=== PATIENT | female | born 1975 | race American Indian/Alaskan Native ===

== ENCOUNTER 2018-06-17 13:22 | Inpatient (IN) | payer BC, MEDICAID ==
[2018-06-17] MEDS ORDERED: Sodium Chloride 0.9% 1,000 ML IV ONE ×2 (14:19→16:39)
[2018-06-17] MEDS ORDERED: Sodium Chloride 0.9% 2,000 ML ONE (14:26)
[2018-06-17 14:34] LABS: SQUAMOUS EPITHIAL 8 /hpf (0-5); URINE BILIRUBIN NEGATIVE (NEGATIVE); URINE BLOOD NEGATIVE (NEGATIVE); URINE CLARITY Hazy (Clear); URINE COLOR Yellow (YELLOW); URINE GLUCOSE (UA) NORMAL (Normal); URINE LEUKOCYTE ESTERASE NEG Leu/uL (Negative); URINE PROTEIN NEGATIVE (NEGATIVE); URINE UROBILINOGEN NORMAL mg/dL (0.2-1.0)
[2018-06-17 14:44] LABS: BASO # 0.1 K/uL (0.0-0.2); BASO % 0.6 % (0.0-2.0); EOS # 0.1 K/uL (0.0-0.7); EOS % 0.5 % (0.0-4.0); HEMOGLOBIN 11.1 g/dL (11.0-16.0); LYMPH # 0.6 K/uL (1.0-4.3); LYMPH % 5.4 % (20.0-40.0); MEAN CORPUSCULAR HGB CONC 34.4 g/dL (33.0-37.0); MEAN PLATELET VOLUME 8.6 fL (7.2-11.7); MONO # 1.1 K/uL (0.0-0.8); MONO % 10.5 % (0.0-10.0); NRBC % 0.1 % (0.0-2.0); PLATELET COUNT 233 K/uL (130-400); RBC 3.69 Mil/uL (3.80-5.20); WHITE BLOOD COUNT 10.8 K/uL (4.8-10.8)
[2018-06-17 14:47] LABS: ALB/GLOB RATIO 1.3 (1.0-2.1); ALBUMIN 3.8 g/dL (3.5-5.0); ALT/SGPT 34 U/L (9-52); AST/SGOT 40 U/L (14-36); BLOOD UREA NITROGEN 4 mg/dL (7-17); GFR NON-AFRICAN AMERICAN > 60
[2018-06-17 15:02] LABS: BANDS 2 % (0-2); LYMPHOCYTE 4 % (20-40); METAMYELOCYTE 1 % (0-0); MONOCYTE 10 % (0-10); NEUTROPHIL 83 % (50-75); TOTAL CELLS COUNTED 100
[2018-06-17 15:03] LABS: ANISOCYTOSIS SLIGHT; HYPOCHROMIC SLIGHT; PLATELET ESTIMATE NORMAL (NORMAL); POLYCHROMIC SLIGHT; TARGET CELLS SLIGHT
--- NOTE | 2018-06-17 15:30 | C.PDOC ---
History Of Present Illness 42 y/o female, currently 25 weeks , comes in complaining of 2 day history of cough, congestion, body aches, and fever but no nausea, vomiting, or diarrhea. Patient denies any vaginal bleeding or discharge, abdominal pain, or other symptoms. Time Seen by Provider: 06/17/18 14:03 Chief Complaint (Nursing): Cough, Cold, Congestion History Per: Patient History/Exam Limitations: no limitations Onset/Duration Of Symptoms: Days Current Symptoms Are (Timing): Still Present Past Medical History Reviewed: Historical Data, Nursing Documentation, Vital Signs Vital Signs: Last Vital Signs Temp 100.9 F H 06/17/18 14:30 Pulse 134 H 06/17/18 14:18 Resp 16 06/17/18 14:18 BP 116/67 06/17/18 14:18 Pulse Ox 100 06/17/18 14:18 Family History: States: No Known Family Hx - Social History Hx Alcohol Use: No Hx Substance Use: No Review Of Systems Except As Marked, All Systems Reviewed And Found Negative. Constitutional: Positive for: Fever, Other (Body aches) ENT: Positive for: Nose Congestion Respiratory: Positive for: Cough Neurological: Positive for: Headache Physical Exam - Physical Exam Appears: Non-toxic, No Acute Distress Skin: Normal Color, Warm, Dry Head: Atraumatic, Normacephalic Eye(s): bilateral: Normal Inspection, PERRL Ear(s): Bilateral: Normal Oral Mucosa: Moist Throat: Normal, No Erythema, No Exudate Cardiovascular: Rhythm Regular, No Murmur Respiratory: Normal Breath Sounds, No Rales, No Rhonchi, No Wheezing Gastrointestinal/Abdominal: Soft, No Tenderness Pelvic: Other (Gravid uterus) Extremity: Bilateral: Atraumatic, Normal Color And Temperature, Normal ROM Neurological/Psych: Oriented x3, Normal Speech ED Course And Treatment - Laboratory Results Result Diagrams: 06/17/18 14:31 06/17/18 14:31 Lab Results: Total Bilirubin 0.6 mg/dL (0.2-1.3) 06/17/18 14:31 AST 40 U/L (14-36) H 06/17/18 14:31 ALT 34 U/L (9-52) 06/17/18 14:31 Alkaline Phosphatase 86 U/L (38-126) 06/17/18 14:31 Total Protein 6.8 g/dL (6.3-8.3) 06/17/18 14:31 Albumin 3.8 g/dL (3.5-5.0) 06/17/18 14:31 Globulin 3.0 gm/dL (2.2-3.9) 06/17/18 14:31 Albumin/Globulin Ratio 1.3 (1.0-2.1) 06/17/18 14:31 Urine Color Yellow (YELLOW) 06/17/18 14:24 Urine Clarity Hazy (Clear) 06/17/18 14:24 Urine pH 6.0 (5.0-8.0) 06/17/18 14:24 Ur Specific [place] 1.016 (1.003-1.030) 06/17/18 14:24 Urine Protein Negative mg/dL (NEGATIVE) 06/17/18 14:24 Urine Glucose (UA) Normal mg/dL (Normal) 06/17/18 14:24 Urine Ketones Trace mg/dL (NEGATIVE) 06/17/18 14:24 Urine Blood Negative (NEGATIVE) 06/17/18 14:24 Urine Nitrate Negative (NEGATIVE) 06/17/18 14:24 Urine Bilirubin Negative (NEGATIVE) 06/17/18 14:24 Urine Urobilinogen Normal mg/dL (0.2-1.0) 06/17/18 14:24 Ur Leukocyte Esterase Neg Antonio/uL (Negative) 06/17/18 14:24 Urine WBC (Auto) 2 /hpf (0-5) 06/17/18 14:24 Urine RBC (Auto) 2 /hpf (0-3) 06/17/18 14:24 Ur Squamous Epith Cells 8 /hpf (0-5) H 06/17/18 14:24 ECG: Interpreted By Me, Viewed By Me ECG Rhythm: Sinus Tachycardia Interpretation Of ECG: Normal intervals. Normal axis. No ST/T wave abnormalities. Rate From EC O2 Sat by Pulse Oximetry: 100 (RA) Pulse Ox Interpretation: Normal Medical Decision Making Medical Decision Making: Impression: Influenza Plan: --Labs --Flu swab --UA --IV fluids 1L --Tamiflu PO --Tylenol PO 1630 Notified L&D, secondary to patient, states that she has abdominal cramping and pressure now, but no bleeding. patient remained tachycardic. Will admit to hospital. Disposition Discussed With : Vicente Gill Doctor Will See Patient In The: Hospital Counseled Patient/Family Regarding: Studies Performed, Diagnosis - Disposition Disposition: HOSPITALIZED Disposition Time: 18:07 Condition: FAIR - Clinical Impression Clinical Impression: Influenza-like illness, Tachycardia, - Scribe Statement The provider has reviewed the documentation as recorded by the Adrianne Varela Provider Attestation: All medical record entries made by the Greeribdao were at my direction and p ersonally dictated by me. I have reviewed the chart and agree that the record accurately reflects my personal performance of the history, physical exam, medical decision making, and the department course for this patient. I have also personally directed, reviewed, and agree with the discharge instructions and disposition.
--- NOTE | 2018-06-17 18:18 | CP.PCM.CON ---
History of Present Illness - History of Present Illness History of Present Illness: 42yo at 25.3wks SHANTELLE: 09/27/18 by LMP: 12/21/17 presents with cough, fever, fatigue x 2 days. Pt states child at home tested positive for flu. The patient tested postive for Influenza A on examination today. She denies contractiosn, leakage of fluid and vaginal bleeding. Reports movements. Review of Systems - Review of Systems Systems not reviewed;Unavailable: Unstable Vital Signs - Constitutional Constitutional: As Per HPI - Cardiovascular Cardiovascular: As Per HPI - Respiratory Respiratory: As Per HPI - Reproductive: Female Additional comments: deferred Past Patient History - Past Medical History & Family History Past Medical History?: No - Past Social History Smoking Status: Never Smoked Chewing Tobacco Use: No Cigar Use: No Alcohol: None Drugs: Denies Home Situation {Lives}: With Family - HEMATOLOGICAL/ONCOLOGICAL Hx Anemia: Yes - PSYCHIATRIC Hx Substance Use: No Meds Allergies/Adverse Reactions: Allergies Allergy/AdvReac Type Severity Reaction Status Date / Time almond Allergy Verified 06/17/18 13:36 Physical Exam - GI/Abdominal Exam Additional comments: soft, non-tender nondistended (+) gravid uterus Results - Vital Signs Recent Vital Signs: Last Vital Signs Temp 98.2 F 06/17/18 17:00 Pulse 126 H 06/17/18 17:00 Resp 19 06/17/18 17:00 BP 108/63 06/17/18 17:00 Pulse Ox 100 06/17/18 17:00 - Labs Result Diagrams: 06/17/18 14:31 06/17/18 14:31 Labs: Laboratory Results - last 24 hr 06/17/18 06/17/18 06/17/18 14:24 14:31 14:31 WBC 10.8 RBC 3.69 L Hgb 11.1 Hct 32.1 L MCV 87.0 MCH 30.0 MCHC 34.4 RDW 14.0 Plt Count 233 MPV 8.6 Neut % (Auto) 83.0 H Lymph % (Auto) 5.4 L Kane % (Auto) 10.5 H Eos % (Auto) 0.5 Baso % (Auto) 0.6 Neut # (Auto) 9.0 H Lymph # (Auto) 0.6 L Kane # (Auto) 1.1 H Eos # (Auto) 0.1 Baso # (Auto) 0.1 Neutrophils % (Manual) 83 H Band Neutrophils % 2 Lymphocytes % (Manual) 4 L Monocytes % (Manual) 10 Metamyelocytes % 1 H Platelet Estimate Normal Polychromasia Slight Hypochromasia (manual) Slight Anisocytosis (manual) Slight Target Cells Slight Sodium 133 Potassium 3.8 Chloride 102 Carbon Dioxide 23 Anion Gap 12 BUN 4 L Creatinine 0.5 L Est GFR ( Amer) > 60 Est GFR (Non-Af Amer) > 60 Random Glucose 78 Calcium 9.0 Total Bilirubin 0.6 AST 40 H ALT 34 Alkaline Phosphatase 86 Total Protein 6.8 Albumin 3.8 Globulin 3.0 Albumin/Globulin Ratio 1.3 Urine Color Yellow Urine Clarity Hazy Urine pH 6.0 Ur Specific [place] 1.016 Urine Protein Negative Urine Glucose (UA) Normal Urine Ketones Trace Urine Blood Negative Urine Nitrate Negative Urine Bilirubin Negative Urine Urobilinogen Normal Ur Leukocyte Esterase Neg Urine WBC (Auto) 2 Urine RBC (Auto) 2 Ur Squamous Epith Cells 8 H Influenza Typ A,B (EIA) 06/17/18 14:31 WBC RBC Hgb Hct MCV MCH MCHC RDW Plt Count MPV Neut % (Auto) Lymph % (Auto) Kane % (Auto) Eos % (Auto) Baso % (Auto) Neut # (Auto) Lymph # (Auto) Kane # (Auto) Eos # (Auto) Baso # (Auto) Neutrophils % (Manual) Band Neutrophils % Lymphocytes % (Manual) Monocytes % (Manual) Metamyelocytes % Platelet Estimate Polychromasia Hypochromasia (manual) Anisocytosis (manual) Target Cells Sodium Potassium Chloride Carbon Dioxide Anion Gap BUN Creatinine Est GFR ( Amer) Est GFR (Non-Af Amer) Random Glucose Calcium Total Bilirubin AST ALT Alkaline Phosphatase Total Protein Albumin Globulin Albumin/Globulin Ratio Urine Color Urine Clarity Urine pH Ur Specific [place] Urine Protein Urine Glucose (UA) Urine Ketones Urine Blood Urine Nitrate Urine Bilirubin Urine Urobilinogen Ur Leukocyte Esterase Urine WBC (Auto) Urine RBC (Auto) Ur Squamous Epith Cells Influenza Typ A,B (EIA) Pos for influenza a H Assessment & Plan - Assessment and Plan (Free Text) Assessment: 42yo [id number] at 25.3wks- Influenza VS-(+) tachycardia (+) temp 100.9 EKG NSR in ER Continue IVF Influenza A positive- Tamiflu safe in no obstetrical complaints at this time NST at bedside performed- no CTX noted, unable to get continuous NST- Bedside US performed (+) FHR 150s, (+) movements visualized - Official US ordered- will follow Thank you for your consultation, will continue to follow patient if admitted. Tessa eJwell D.O (DEGREE CLERK marine engineering consultant)
[2018-06-18] MEDS: Sodium Chloride 0.9% 1,000 ML IV SCH ×3 (01:36→18:53)
[2018-06-18 01:51] VITALS: RESP 20
[2018-06-18] MEDS ORDERED: Benzocaine/Menthol (Cepacol) Lozenge MT ONE (05:48)
[2018-06-18 09:41] LABS: HEMOGLOBIN 9.5 g/dL (11.0-16.0); MEAN CELL VOLUME 87.2 fL (81.0-99.0); MEAN CORPUSCULAR HEMOGLOBIN 29.3 pg (27.0-31.0); MEAN CORPUSCULAR HGB CONC 33.6 g/dL (33.0-37.0); MEAN PLATELET VOLUME 8.6 fL (7.2-11.7); RBC 3.25 Mil/uL (3.80-5.20); RED CELL DISTRIBUTION WIDTH 13.9 % (11.5-14.5); WHITE BLOOD COUNT 7.6 K/uL (4.8-10.8)
[2018-06-18 09:58] LABS: BLOOD UREA NITROGEN 3 mg/dL (7-17); CALCIUM 8.5 mg/dl (8.6-10.4); GFR NON-AFRICAN AMERICAN > 60
[2018-06-18] MEDS: Potassium Chloride 20 mEq/15 ml LIQ UD PO SCH ×2 (12:48→16:48)
--- NOTE | 2018-06-18 13:14 | US ---
Limited obstetrical ultrasound HISTORY: Twenty-six weeks . Flu positive. COMPARISON: None available. Technique: Real-time sonography was performed through the pelvis. Findings: Please note this was a study dedicated for viability purposes only. This was not a dedicated anatomic survey. Dedicated anatomic survey to assess for anomaly is recommended as follow-up to this examination. Cervix measures 4.2 centimeters. Anterior placental position. Placenta is clear from the cervical. Breech presentation. heart rate and motion noted. heart rate of 137 beats per minute. Mean ultrasound age of approximately 26 weeks and 0 days. Biparietal diameter of 6.6 centimeters, head circumference of 24 centimeters, abdominal circumference of 20.98 centimeters, and femur length of 4.6 centimeters. Impression: Limited study for viability purposes only. Dedicated anatomic survey is recommended at an interval date to assess for possible anomaly. Mean ultrasound age of approximately 26 weeks and 0 days with heart rate of 137 beats per minute. Breech presentation.
--- NOTE | 2018-06-18 21:01 | CP.PCM.HP ---
Present on Admission - Present on Admission Any Indicators Present on Admission: No Past Patient History - Past Medical History & Family History Past Medical History?: No - Past Social History Smoking Status: Never Smoked - CARDIAC Hx Cardiac Disorders: No - PULMONARY Hx Respiratory Disorders: No - NEUROLOGICAL Hx Neurological Disorder: No - HEENT Hx HEENT Problems: No - RENAL Hx Chronic Kidney Disease: No - ENDOCRINE/METABOLIC Hx Endocrine Disorders: No - HEMATOLOGICAL/ONCOLOGICAL Hx Blood Disorders: Yes Hx Anemia: Yes - INTEGUMENTARY Hx Dermatological Problems: No - MUSCULOSKELETAL/RHEUMATOLOGICAL Hx Musculoskeletal Disorders: No Hx Falls: No - GASTROINTESTINAL Hx Gastrointestinal Disorders: No - GENITOURINARY/GYNECOLOGICAL Hx Genitourinary Disorders: No - PSYCHIATRIC Hx Psychophysiologic Disorder: No Hx Substance Use: No - SURGICAL HISTORY Hx Surgeries: No - ANESTHESIA Hx Anesthesia: No Meds Allergies/Adverse Reactions: Allergies Allergy/AdvReac Type Severity Reaction Status Date / Time almond Allergy Verified 06/17/18 13:36 Results - Vital Signs Recent Vital Signs: Last Vital Signs Temp 99 F 06/18/18 15:16 Pulse 102 H 06/18/18 15:16 Resp 20 06/18/18 15:16 BP 96/54 L 06/18/18 15:16 Pulse Ox 98 06/18/18 15:16 - Labs Result Diagrams: 06/18/18 09:33 06/18/18 09:33 Labs: Laboratory Results - last 24 hr 06/18/18 06/18/18 09:33 09:33 WBC 7.6 RBC 3.25 L Hgb 9.5 L Hct 28.3 L MCV 87.2 MCH 29.3 MCHC 33.6 RDW 13.9 Plt Count 214 MPV 8.6 Sodium 134 Potassium 3.1 L Chloride 107 Carbon Dioxide 21 L Anion Gap 8 L BUN 3 L Creatinine 0.4 L Est GFR ( Amer) > 60 Est GFR (Non-Af Amer) > 60 Random Glucose 141 H D Calcium 8.5 L
--- NOTE | 2018-06-19 05:33 | HP ---
CHIEF COMPLAINT: Fever, cough for two days. HISTORY OF PRESENT ILLNESS: This is a 42-year-old female who is 25 weeks who came in because two days onset of cough, congestion, body aches, fever, chills, rigors, nausea. No vomiting. She has chills. She has malaise. She has anorexia. She feels palpitations, weakness, and dizziness. She denies any abdominal pain, nausea, vomiting, diarrhea. She denies any polyuria, polydipsia, polyphagia. She denies any sneezing, itchy eyes, itchy nose. There is no history of trauma or fall. There is no history of hematemesis, melena, hematochezia. She had no history of hemoptysis. She has fever and chills. She denied any prior episode like this. She denies any joint pain. She has body aches and muscle aches. SOCIAL HISTORY: She is non-smoker, non-ETOH user. CURRENT MEDICATIONS: None. PAST MEDICAL HISTORY: Nothing significant. PHYSICAL EXAMINATION: GENERAL: Middle-aged female in distress with weakness, fever, and malaise. VITAL SIGNS: Blood pressure 130/74, pulse 123, respiratory rate 20, temperature 99.8. SKIN: No rashes. No bruises. No purpura. HEENT: Atraumatic, normocephalic. Negative pallor. Negative jaundice. Extraocular movements are intact. NECK: Supple. No JVD. No lymph node. No thyromegaly. No carotid bruits. CHEST WALL: Bilaterally symmetrical expansion. LUNGS: Clear. CARDIOVASCULAR SYSTEM: S1 and S2 regular. Tachycardiac. ABDOMEN: Soft. Nontender. Bowel sounds are positive. PELVIC: Deferred. EXTREMITIES: No clubbing, cyanosis or edema. CENTRAL NERVOUS SYSTEM: Normal. ASSESSMENT: 1. Flu. 2. Dehydration. PLAN: Admit. Detailed orders are written. Seen and examined. Vicente Gill MD
[2018-06-19 07:44] VITALS: BP 99/63; TEMP 97.8; O2SAT 97
[2018-06-19 08:31] VITALS: PULSE 86
[2018-06-19] MEDS ORDERED: Potassium Chloride 20 mEq ER Tab PO ONE (10:00)
--- NOTE | 2018-06-19 12:25 | CP.PCM.PN ---
Subjective - Date & Time of Evaluation Date of Evaluation: 06/19/18 Time of Evaluation: 12:25 - Subjective Subjective: PATIENT SEEN AND EXAMINED AT THE BEDSIDE Objective - Vital Signs/Intake and Output Vital Signs (last 24 hours): Temp Pulse Resp BP Pulse Ox 97.8 F 86 20 99/63 L 97 06/19/18 07:05 06/19/18 07:45 06/19/18 07:05 06/19/18 07:05 06/19/18 07:05 - Medications Medications: Current Medications Acetaminophen (Tylenol 325mg Tab) 650 mg PO Q6 PRN PRN Reason: Fever >100.4 F Last Admin: 06/18/18 19:42 Dose: 650 mg Sodium Chloride (Sodium Chloride 0.9%) 1,000 mls @ 100 mls/hr IV .Q10H MAXIMINO Last Admin: 06/18/18 18:53 Dose: Not Given Influenza Virus Vaccine (Flucelvax Quad 4118-7330 Syr) 60 mcg IM .ONCE ONE Stop: 06/20/18 12:01 Oseltamivir Phosphate (Tamiflu Cap) 75 mg PO BID MAXIMINO; Protocol Stop: 06/22/18 21:12 Last Admin: 06/19/18 09:26 Dose: 75 mg - Labs Labs: 06/18/18 09:33 06/18/18 09:33 Assessment and Plan - Assessment and Plan (Free Text) Assessment: FOLLOW UP WITH DR SEXTON IN HIS OFFICE -----CALL FOR APPOINTMENT FOLLOW UP WITH OBGYN -----CALL FOR APPOINTMENT CONTINUE HOME MEDICATION NEW PRESCRIPTION GIVEN TAMIFLU 75 MG PO BID FOR 4 DAYS CEPACOL ONE TAB PO PRN FOR 3 DAYS FOR SORE THROAT GUAIFENISIN 10 ML PO PRN Q4 H FOR COUGH ACTIVITY TOLERATED CALL DR SEXTON OR GO TO THE EMERGENCY ROOM IF SYMPTOM RETURN OR WORSENING
--- NOTE | 2018-06-19 19:46 | CARD ---
APPROVED REPORT Date of service: 06/17/2018 EKG Measurement Heart [id number] <Conclusion> Sinus tachycardia Otherwise normal ECG
--- NOTE | 2018-06-19 20:32 | CP.PCM.DIS ---
Provider - Provider Date of Admission: 06/17/18 18:04 Attending physician: Vicente Gill MD Consults: 06/17/18 17:39 Physician Consult Stat Comment: Consulting Provider: Radha Jewell Consulting Physician: Radha Jewell Reason for Consult: abdominal pressure Time Spent in preparation of Discharge (in minutes): 30 Hospital Course - Lab Results Lab Results: Most Recent Lab Values WBC 7.6 K/uL (4.8-10.8) 06/18/18 09:33 RBC 3.25 Mil/uL (3.80-5.20) L 06/18/18 09:33 Hgb 9.5 g/dL (11.0-16.0) L 06/18/18 09:33 Hct 28.3 % (34.0-47.0) L 06/18/18 09:33 MCV 87.2 fL (81.0-99.0) 06/18/18 09:33 MCH 29.3 pg (27.0-31.0) 06/18/18 09:33 MCHC 33.6 g/dL (33.0-37.0) 06/18/18 09:33 RDW 13.9 % (11.5-14.5) 06/18/18 09:33 Plt Count 214 K/uL (130-400) 06/18/18 09:33 MPV 8.6 fL (7.2-11.7) 06/18/18 09:33 Neut % (Auto) 83.0 % (50.0-75.0) H 06/17/18 14:31 Lymph % (Auto) 5.4 % (20.0-40.0) L 06/17/18 14:31 [place] % (Auto) 10.5 % (0.0-10.0) H 06/17/18 14:31 Eos % (Auto) 0.5 % (0.0-4.0) 06/17/18 14:31 Baso % (Auto) 0.6 % (0.0-2.0) 06/17/18 14:31 Neut # (Auto) 9.0 K/uL (1.8-7.0) H 06/17/18 14:31 Lymph # (Auto) 0.6 K/uL (1.0-4.3) L 06/17/18 14:31 [place] # (Auto) 1.1 K/uL (0.0-0.8) H 06/17/18 14:31 Eos # (Auto) 0.1 K/uL (0.0-0.7) 06/17/18 14:31 Baso # (Auto) 0.1 K/uL (0.0-0.2) 06/17/18 14:31 Neutrophils % (Manual) 83 % (50-75) H 06/17/18 14:31 Band Neutrophils % 2 % (0-2) 06/17/18 14:31 Lymphocytes % (Manual) 4 % (20-40) L 06/17/18 14:31 Monocytes % (Manual) 10 % (0-10) 06/17/18 14:31 Metamyelocytes % 1 % (0-0) H 06/17/18 14:31 Platelet Estimate Normal (NORMAL) 06/17/18 14:31 Polychromasia Slight 06/17/18 14:31 Hypochromasia (manual) Slight 06/17/18 14:31 Anisocytosis (manual) Slight 06/17/18 14:31 Target Cells Slight 06/17/18 14:31 Sodium 134 mmol/L (132-148) 06/18/18 09:33 Potassium 3.1 mmol/L (3.6-5.2) L 06/18/18 09:33 Chloride 107 mmol/L (98-107) 06/18/18 09:33 Carbon Dioxide 21 mmol/L (22-30) L 06/18/18 09:33 Anion Gap 8 (10-20) L 06/18/18 09:33 BUN 3 mg/dL (7-17) L 06/18/18 09:33 Creatinine 0.4 mg/dL (0.7-1.2) L 06/18/18 09:33 Est GFR ( Amer) > 60 06/18/18 09:33 Est GFR (Non-Af Amer) > 60 06/18/18 09:33 Random Glucose 141 mg/dL (65-105) H D 06/18/18 09:33 Calcium 8.5 mg/dl (8.6-10.4) L 06/18/18 09:33 Total Bilirubin 0.6 mg/dL (0.2-1.3) 06/17/18 14:31 AST 40 U/L (14-36) H 06/17/18 14:31 ALT 34 U/L (9-52) 06/17/18 14:31 Alkaline Phosphatase 86 U/L (38-126) 06/17/18 14:31 Total Protein 6.8 g/dL (6.3-8.3) 06/17/18 14:31 Albumin 3.8 g/dL (3.5-5.0) 06/17/18 14:31 Globulin 3.0 gm/dL (2.2-3.9) 06/17/18 14:31 Albumin/Globulin Ratio 1.3 (1.0-2.1) 06/17/18 14:31 Urine Color Yellow (YELLOW) 06/17/18 14:24 Urine Clarity Hazy (Clear) 06/17/18 14:24 Urine pH 6.0 (5.0-8.0) 06/17/18 14:24 Ur Specific [place] 1.016 (1.003-1.030) 06/17/18 14:24 Urine Protein Negative mg/dL (NEGATIVE) 06/17/18 14:24 Urine Glucose (UA) Normal mg/dL (Normal) 06/17/18 14:24 Urine Ketones Trace mg/dL (NEGATIVE) 06/17/18 14:24 Urine Blood Negative (NEGATIVE) 06/17/18 14:24 Urine Nitrate Negative (NEGATIVE) 06/17/18 14:24 Urine Bilirubin Negative (NEGATIVE) 06/17/18 14:24 Urine Urobilinogen Normal mg/dL (0.2-1.0) 06/17/18 14:24 Ur Leukocyte Esterase Neg Antonio/uL (Negative) 06/17/18 14:24 Urine WBC (Auto) 2 /hpf (0-5) 06/17/18 14:24 Urine RBC (Auto) 2 /hpf (0-3) 06/17/18 14:24 Ur Squamous Epith Cells 8 /hpf (0-5) H 06/17/18 14:24 Influenza Typ A,B (EIA) Pos for influenza a (NEGATIVE) H 06/17/18 14:31 Discharge Plan - Discharge Medications Prescriptions: Benzocaine/Menthol [Cepacol Sore Throat] 1 marianne MT Q4H PRN 3 Days marianne PRN Reason: Sore Throat guaiFENesin [Robitussin] 200 mg PO Q4H 3 Days udc Oseltamivir Cap [Tamiflu Cap] 75 mg PO BID 4 Days capsule - Follow Up Plan Condition: FAIR Disposition: HOME/ ROUTINE Instructions: Flu, Adult (DC), Benzocaine, Guaifenesin, Oseltamivir, Tachycardia (DC) Additional Instructions: FOLLOW UP WITH DR GILL IN HIS OFFICE -----CALL FOR APPOINTMENT FOLLOW UP WITH OBGYN -----CALL FOR APPOINTMENT CONTINUE HOME MEDICATION NEW PRESCRIPTION GIVEN TAMIFLU 75 MG PO BID FOR 4 DAYS CEPACOL ONE TAB PO PRN FOR 3 DAYS FOR SORE THROAT GUAIFENISIN 10 ML PO PRN Q4 H FOR COUGH ACTIVITY TOLERATED CALL DR GILL OR GO TO THE EMERGENCY ROOM IF SYMPTOM RETURN OR WORSENING Referrals: Vicente Gill MD [Staff Provider] - 06/26/18 11:30 am
[2018-06-20] MEDS ORDERED: Influenza Vaccine 60 mcg/0.5 mL SYR (4YR UP) IM ONE (12:00)
--- NOTE | 2018-06-20 15:02 | DS ---
DISCHARGE DIAGNOSES: 1. Flu. 2. , 22 weeks. HISTORY OF PRESENT ILLNESS: This is a 42-year-old female admitted with fever, chills, rigor, found to have flu. The patient was started on Tamiflu and the patient underwent OB evaluation and OB ultrasound, which showed with heart rate of 137 and the patient is for discharge. She is febrile. She feels better. She has been hydrated. PHYSICAL EXAMINATION: VITAL SIGNS: Blood pressure is 99/63, pulse 84, respiratory rate 20, temperature 97.8. LABORATORY DATA: WBC is 7.6, hemoglobin 9.5, hematocrit 28.3, platelet 214. Sodium 134, potassium 3.1, chloride 107, bicarb 21, BUN 3, creatinine 0.4. CONDITION UPON DISCHARGE: Stable. Vicente Gill MD
== END 2018-06-19 14:11 | disposition home or self-care (01) | DRG 833 ==
LOC: C.ER 13:22 → C.9E 18:04 → C.6T 20:07
PROVIDERS: ADMIT Internal Medicine; ATTEND Internal Medicine
DX: O26.892 Other specified pregnancy related conditions, second trimester (principal); E86.0 Dehydration; R00.0 Tachycardia, unspecified; J10.1 Influenza due to other identified influenza virus with other respiratory manifestations; Z3A.25 25 weeks gestation of pregnancy

== ENCOUNTER 2018-07-11 14:00 | Emergency (ER) | payer BC ==
[2018-07-11] MEDS ORDERED: Lactated Ringer's 1,000 ML IV ONE (15:13)
[2018-07-11 15:31] LABS: BASO # 0.1 K/uL (0.0-0.2); BASO % 0.6 % (0.0-2.0); EOS # 0.1 K/uL (0.0-0.7); EOS % 1.7 % (0.0-4.0); HEMOGLOBIN 10.6 g/dL (11.0-16.0); LYMPH # 1.8 K/uL (1.0-4.3); LYMPH % 20.6 % (20.0-40.0); MEAN CELL VOLUME 87.6 fL (81.0-99.0); MEAN CORPUSCULAR HEMOGLOBIN 29.4 pg (27.0-31.0); MEAN CORPUSCULAR HGB CONC 33.5 g/dL (33.0-37.0); MEAN PLATELET VOLUME 9.2 fL (7.2-11.7); MONO # 1.1 K/uL (0.0-0.8); MONO % 12.7 % (0.0-10.0); NEUT # 5.5 K/uL (1.8-7.0); NEUT % 64.4 % (50.0-75.0); NRBC % 0.1 % (0.0-2.0); RBC 3.61 Mil/uL (3.80-5.20); RED CELL DISTRIBUTION WIDTH 14.3 % (11.5-14.5); WHITE BLOOD COUNT 8.5 K/uL (4.8-10.8)
[2018-07-11 15:37] LABS: SQUAMOUS EPITHIAL 5 /hpf (0-5); URINE BACTERIA OCC (<OCC); URINE BILIRUBIN NEGATIVE (NEGATIVE); URINE BLOOD NEGATIVE (NEGATIVE); URINE CLARITY Hazy (Clear); URINE COLOR Straw (YELLOW); URINE GLUCOSE (UA) NORMAL (Normal); URINE LEUKOCYTE ESTERASE NEG Leu/uL (Negative); URINE PROTEIN NEGATIVE (NEGATIVE); URINE UROBILINOGEN NORMAL mg/dL (0.2-1.0)
[2018-07-11 15:38] LABS: PROTHROMBIN TIME 11.2 SECONDS (9.7-12.2)
[2018-07-11 15:43] LABS: ALB/GLOB RATIO 1.2 (1.0-2.1); ALBUMIN 3.6 g/dL (3.5-5.0); ALT/SGPT 24 U/L (9-52); AST/SGOT 27 U/L (14-36); BLOOD UREA NITROGEN 5 mg/dL (7-17); CALCIUM 9.4 mg/dl (8.6-10.4); GFR NON-AFRICAN AMERICAN > 60; URIC ACID 2.7 mg/dL (2.2-7.5)
[2018-07-11 21:00] VITALS: BP 98/58; PULSE 87; TEMP 98
--- NOTE | 2018-07-11 22:43 | OBHP ---
Datetime: 07/11/2018 15:04 IP Adm Impression: , intrauterine IP Admit Plan: Discharge home Admit Comment, IP Provider: 42 y/o female at 28.6 wks SHANTELLE 09/27/18 with LMP 12/21/17 presents to triage from Dr. Mejia's office due to elevated BP (140/90) and nausea/vomiting this morning. Per Dr Corinna Mejia's request, induced HTN labs and IVF to be completed here in triage. Patient began to have nausea this morning after drinking her routine tea at 6am. She vomited the t ea three times shortly after. At 8am patient felt like she had to force herself to eat so she ate oat meal and kept it down. Patient denies sick contacts or eating old or odd foods. Patient did not know what was going on with her symptoms so she visited Dr. Mejia later today. Of note, patient was hospi talized for flu 3 weeks ago and finished 5 days of BID tamiflu. Patient's flu symptoms have resolved. Patient's course has been unremarkable. She has been seeing Dr. Mejia since the initial visit. She has never had HTN nor has she ever had gestational HTN in the past. Patient felt nauseated at the beginning of this but has not had nausea for a while until this morning. R ight now in triage she denies feeling nauseated. Patient states baby feels normal and is moving. Glen es vaginal bleeding or feeling water breaking. Patient also denies visual changes, edema, RUQ pain, fever, chills, sweats, diarrhea, dysuria, abd ominal pain, chest pain, wheezing, palpitations, shortness of breath, cough. ROS: as per HPI PMHx: denies OB hx: at term for all of her 3 children - 1999 (male about 8lbs), 2004 (female about 6 lbs), 2011 (female about 8 lbs). All unremarkable course. This course, she was found to h ave some anemia and was started on daily iron. 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 Denies history of STIs, fibroids and abnormal pap smears PSHx: denies FHx: Mother 75 y/o alive and healthy. Father passed about 60 y/o for unknown causes. Otherwise den ies FHx of chronic diseases. SocHx: Denies EtOH (social only on holidays), tobacco and illicit drugs. 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 Patient has been legally for about 10 years. Meds: PNV daily, iron daily, 10,000U vitamin D daily Allergies: NKDA Vitals: 140/[address] Mejia's clinic. 117/64 here in triage. P80, FHR: 135 baseline. PE: see side template A/P: 42 y/o at 28.6 weeks presents with nausea/vomiting and elevated blood pressure readin g in office (140/80) for gestational HTN workup. -CBC - consistent with her known anemia 10.6/31.7 -CMP, uric acid, coags, UA, LDH - wnl -fibrinogen 456, but elevated in preg -Patient started on Lactated Ringer's IVF Not gestational HTN or pre-eclampsia due to normal repeat BPs and nausea/vomiting resolved. Sympto ms likely 2/2 natural course of . HTN likely incidental in the office and/or white coat HTN as it has resolved. Signs and symptoms of pre-eclampsia and ED return precautions explained to patient. Patient is sta ble to be discharged home. case discussed with Dr. Brandon Flores DO PGY-1 Atending Note: patient seen, evaluated and examined by me with the Resident. I agree with the abov e. BP readings and lab results discussed with Dr. Mejia. Patient is cleared for discharge home. Plan: 1) Discharge home 2) Reviewed S/S pre-eclampsia 3) Keep next scheduled appointment(s) Pelvic Type - PN: Not Done Extremities - PN: Normal Abdomen - PN: Normal Back - PN: Not Done Breast - PN: Not Done Lungs - PN: Normal Heart - PN: Normal Thyroid - PN: Not Done Neurologic - PN: Normal HEENT - PN: Normal General - PN: Normal FHR - Baseline A Provider: 135 Comments, ACOG Physical Exam: Abdomen: Gravid, non-tender uterus 28 cm fundal height IP Hx Assessment: The History has been Reviewed and is Current EGA AdmitDate IP: 28.6 Vital Signs Provider: Within Normal Limits IP Chief Complaint: Signs/Symptoms Gestational HTN NICHD Variability Prov Fetus A: Moderate 6-25bpm NICHD Decel Fetus A IP Provider: None Dilatation, Provider: deferred Genitourinary Exam: Not Done DTRs - PN: Not Done
== END 2018-07-11 16:58 | disposition home or self-care (01) ==
LOC: C.EROB 14:00
DX: R03.0 Elevated blood-pressure reading, without diagnosis of hypertension (principal); O21.2 Late vomiting of pregnancy; Z3A.28 28 weeks gestation of pregnancy
CPT/HCPCS: 80053; 81001; 83615; 84550; 85025; 85384; 85610; 85730; 99283; J7120

== ENCOUNTER 2018-09-20 06:00 | Inpatient (IN) | payer BC ==
[2018-09-20 06:47] VITALS: BMI 31.7
[2018-09-20] MEDS ORDERED: Sodium Citrate/Citric Acid 15 ml Sol PO ONE (06:47)
[2018-09-20] MEDS ORDERED: Lactated Ringer's 1,000 ML IV ONE (06:47)
[2018-09-20] MEDS ORDERED: cefOXitin IV 2 gm in Dextrose 2 GM/50 ML BAG IVPB ONE ×2 (06:47→08:08)
--- NOTE | 2018-09-20 06:54 | OBHP ---
Datetime: 09/20/2018 06:50 IP Adm Impression: Term, intrauterine IP Chief Complaint Other: breech IP Admit Plan: Admit to unit; Initiate Section protocol Admit Comment, IP Provider: at 39weeks came withb c/o pain started last night, irrg, no vb , lo f=fm obhx 3 x pmh de med pnv all nkda psh de soch de ve /-3 spono breech a/p at 39weeks breech in pain admit to l_d npo/ivgf labs surgical abxs anthsea aware inforned cobnse Pelvic Type - PN: Adequate Extremities - PN: Normal Abdomen - PN: Normal Back - PN: Normal Breast - PN: Normal Lungs - PN: Normal Heart - PN: Normal Thyroid - PN: Normal Neurologic - PN: Normal HEENT - PN: Normal General - PN: Normal FHR - Baseline A Provider: 140 Contraction Comments Provider: q1-04 IP Hx Assessment: The History has been Reviewed and is Current EGA AdmitDate IP: 39.0 Vital Signs Provider: Reviewed; Within Normal Limits IP Chief Complaint: Uterine contractions NICHD Variability Prov Fetus A: Moderate 6-25bpm NICHD Accel Fetus A IP Provider: 15X15 FHR Category Provider Fetus A: Category I Dilatation, Provider: 1 Effacement, Provider: 50 Station, Provider: -3 Genitourinary Exam: Normal DTRs - PN: Normal
--- NOTE | 2018-09-20 06:57 | OBADHP ---
Datetime: 09/20/2018 06:50 IP Chief Complaint Other: breech Admit Comment, IP Provider: at 39weeks came withb c/o pain started last night, irrg, no vb , lo f=fm obhx 3 x pmh de med pnv all nkda psh de soch de ve /-3 spono breech a/p at 39weeks breech in pain admit to l_d npo/ivgf labs surgical abxs anthsea aware inforned cobnse Pelvic Type - PN: Adequate Extremities - PN: Normal Abdomen - PN: Normal Back - PN: Normal Breast - PN: Normal Lungs - PN: Normal Heart - PN: Normal Thyroid - PN: Normal Neurologic - PN: Normal HEENT - PN: Normal General - PN: Normal FHR - Baseline A Provider: 140 Contraction Comments Provider: q1-04 IP Hx Assessment: The History has been Reviewed and is Current Vital Signs Provider: Reviewed; Within Normal Limits IP Chief Complaint: Uterine contractions NICHD Variability Prov Fetus A: Moderate 6-25bpm NICHD Accel Fetus A IP Provider: [id number] FHR Category Provider Fetus A: Category I Dilatation, Provider: 1 Effacement, Provider: 50 Station, Provider: -3 Genitourinary Exam: Normal DTRs - PN: Normal EGA AdmitDate IP: 39.0 IP Adm Impression: Term, intrauterine IP Admit Plan: Admit to unit; Initiate Section protocol Datetime: 07/11/2018 15:04 Comments, ACOG Physical Exam: Abdomen: Gravid, non-tender uterus 28 cm fundal height NICHD Decel Fetus A IP Provider: None
[2018-09-20] MEDS ORDERED: Sodium Citrate/Citric Acid 15 ml Sol ONE (07:37)
[2018-09-20 08:03] LABS: BASO % 0.4 % (0.0-2.0); EOS # 0.2 K/uL (0.0-0.7); EOS % 2.4 % (0.0-4.0); HEMOGLOBIN 10.8 g/dL (11.0-16.0); LYMPH # 1.8 K/uL (1.0-4.3); LYMPH % 19.9 % (20.0-40.0); MEAN CELL VOLUME 86.6 fL (81.0-99.0); MEAN CORPUSCULAR HEMOGLOBIN 30.9 pg (27.0-31.0); MEAN CORPUSCULAR HGB CONC 35.7 g/dL (33.0-37.0); MEAN PLATELET VOLUME 9.1 fL (7.2-11.7); MONO % 11.7 % (0.0-10.0); NEUT # 5.8 K/uL (1.8-7.0); NEUT % 65.6 % (50.0-75.0); NRBC % 0.3 % (0.0-2.0); RBC 3.48 Mil/uL (3.80-5.20); RED CELL DISTRIBUTION WIDTH 14.4 % (11.5-14.5); WHITE BLOOD COUNT 8.8 K/uL (4.8-10.8)
[2018-09-20] MEDS ORDERED: Morphine 1 mg/ml preservative-free Inj(Duramorph) ONE (08:05)
[2018-09-20] MEDS ORDERED: Morphine 4 MG/ML VIAL ONE (08:05)
[2018-09-20] MEDS ORDERED: Phenylephrine 10 mg/ml Inj ONE (08:06)
[2018-09-20] MEDS ORDERED: Oxytocin 20 units in LR 2,000 ML IV ONE (08:09)
[2018-09-20 08:10] LABS: SQUAMOUS EPITHIAL 15 /hpf (0-5); URINE BACTERIA RARE (<OCC); URINE BILIRUBIN NEGATIVE (NEGATIVE); URINE BLOOD NEGATIVE (NEGATIVE); URINE CLARITY Hazy (Clear); URINE COLOR Yellow (YELLOW); URINE GLUCOSE (UA) NORMAL (Normal); URINE LEUKOCYTE ESTERASE NEG Leu/uL (Negative); URINE PROTEIN NEGATIVE (NEGATIVE); URINE UROBILINOGEN NORMAL mg/dL (0.2-1.0)
[2018-09-20] MEDS ORDERED: ePHEDrine 50 mg/ml Inj ONE (08:11)
[2018-09-20] MEDS ORDERED: Oxytocin 10 Units/ml Inj ONE (08:19)
[2018-09-20] MEDS ORDERED: Midazolam 2 MG/2 ML VIAL ONE (09:39)
--- NOTE | 2018-09-20 10:17 | OBDS ---
MATERNAL INFORMATION Provider Comments: dr eric private yesica breech. end clean placent delivrd no com 9/9 LABOR SUMMARY EDC: 09/27/2018 00:00 No. Babies in Womb: 1 LABOR INFORMATION Group B Beta Strep: Positive BABY A INFORMATION Infant Delivery Date/Time: 09/20/2018 09:19 Method of Delivery: Born in Route : No : N/A Forceps: N/A Vacuum Extraction: N/A Shoulder Dystocia : No SHOULDER DYSTOCIA BABY A Delivery Date/Time: 09/20/2018 09:19 PRESENTATION/POSITION BABY A Presentation: Breech Cephalic Presentation: N/A Breech Presentation: Yesica PLACENTA INFORMATION BABY A Placenta Method of Delivery: Spontaneous Placenta Status: Delivered INFORMATION BABY A Gestational Age at Delivery: 39.0 Gestational Status: Term Outcome : Liveborn Condition : Stable Sex: Male IDENTIFICATION/MEDS BABY A ID Band Number: [id number] ID Band Location: Left Leg; Left Arm Sensor Applied: Yes Sensor Location : Cord Clamp Vitamin K Given : Not Given Erythromycin Given: Not Given WEIGHT/LENGTH BABY A Infant Birthweight (gms): 3205 Infant Weight (lb): 7 Weight (oz): 1 Length Inches: 19.50 Length cms: 49.5 CORD INFORMATION BABY A No. Cord Vessels: 3 Nuchal Cord : N/A Cord Blood Taken: Yes Suction: None; Mouth
[2018-09-20] MEDS ORDERED: Oxycodone/Acetaminophen 5/325 mg Tab PO PRN (10:24)
[2018-09-20] MEDS ORDERED: DiphenhydrAMINE 50 mg/ml Inj IVP PRN (11:14)
[2018-09-20] MEDS: Simethicone 80 mg Chewtab PO SCH ×3 (15:28→22:31)
[2018-09-21] MEDS ORDERED: DiphenhydrAMINE 50 mg/ml Inj ONE (01:55)
--- NOTE | 2018-09-21 06:33 | OBPPN ---
Datetime: 09/21/2018 06:31 PP Pain Prov: Within normal limits PP Nausea Prov: Denies PP Flatus Prov: No PP Abdomen/Uterus Prov: Normal PP Lochia Prov: Normal PP Extremities Prov: Normal PP Impression Prov: Normal progression PP Plan Prov: Continue present management PP Progress Note Prov: pt was seen at bed side, pinunder control,no n/v, toleratingdeit, waiing to v oid pod#1 cbc dvnce deit emourage ambulation cont [post op care Vital Signs Provider PP: Reviewed; Within Normal Limits
[2018-09-21 07:24] LABS: HEMOGLOBIN 10.2 g/dL (11.0-16.0); MEAN CORPUSCULAR HEMOGLOBIN 29.6 pg (27.0-31.0); RBC 3.45 Mil/uL (3.80-5.20); RED CELL DISTRIBUTION WIDTH 14.5 % (11.5-14.5)
[2018-09-21] MEDS ORDERED: Bisacodyl 5mg EC Tab PO ONE (09:30)
[2018-09-21] MEDS: Simethicone 80 mg Chewtab PO SCH ×4 (09:33→21:38)
[2018-09-21] MEDS: Prenatal Multivit/Folic Acid/Iron Tab PO SCH (13:08)
--- NOTE | 2018-09-21 15:35 | OP ---
PROCEDURE DATE: 09/20/2018 PREOPERATIVE DIAGNOSIS: This is a 43-year-old 4, para 3, at presentation for bilateral tubal ligation. POSTOPERATIVE DIAGNOSIS: This is a 43-year-old 4, para 3, at presentation for bilateral tubal ligation. PROCEDURE PERFORMED: , bilateral salpingectomy. SURGEON: Jarret Mejia MD LEARNING DISABILITIES SPECIALIST: Williams Jarvis MD. COMPLICATIONS: None. TYPE OF ANESTHESIA: Spinal. ANESTHESIOLOGIST: Dr. Whitney. ESTIMATED BLOOD LOSS: 800 mL. DESCRIPTION OF PROCEDURE: After informed consent was obtained, the patient was brought to the operating room, placed on the table where spinal anesthesia was given. When anesthesia was found to be sufficient, she was prepped and draped in normal sterile fashion. A 2 cm above the pubic bone, a skin incision was made with a knife, the subcutaneous tissue was cut with the Bovie. The fascia was from the site of the umbilicus and the rectus muscle, . Peritoneum was incised and we went into the abdominal cavity. Bladder blade was placed. Bladder flap was created. Lower uterine segment incision was made with a knife. It was extended using Bovie and curved Alex scissors. Baby delivered in breech. After the cord was clamped and cut, baby was handed to the awaiting automotive metalsmith, placenta delivered manually and sent off for pathology. The uterus was exteriorized and cleared of all clots and debris. The uterine incision was closed using #1 Vicryl in running interlocking fashion. Second layer was closed with the same stitch. Uterine incision looked hemostatic. The patient opted for tubal ligation after discussion. bilateral salpinx on both the sides. After that, gutters were cleared of all the clots and debris. After that, peritoneum was closed using 2-0 Vicryl in a running interlocking fashion. The muscle was closed using 2-0 Vicryl in running interlocking fashion. Fascia was closed using #1 Vicryl in running interlocking fashion. Subcutaneous tissue was closed with 0-Vicryl in interrupted fashion. Skin was closed using 3-0 Monocryl straight needle. The patient tolerated the procedure well. Lap, sponge, and instrument counts were correct x2. Jarret Mejia MD [facility] # [id number]
[2018-09-21] MEDS ORDERED: Bacitracin 500 Units/gm Oint Foilpak UD TOP ONE (16:00)
[2018-09-21] MEDS: Oxycodone/Acetaminophen 5/325 mg Tab PO PRN (21:37)
[2018-09-22] MEDS: Oxycodone/Acetaminophen 5/325 mg Tab PO PRN ×4 (05:36→18:16)
--- NOTE | 2018-09-22 08:41 | OBPPN ---
Datetime: 09/22/2018 08:37 PP Pain Prov: Within normal limits PP Nausea Prov: Denies PP Flatus Prov: Yes PP BM Prov: Yes PP Abdomen/Uterus Prov: Normal PP Lochia Prov: Normal PP Vulva/Perineum Prov: Normal PP Extremities Prov: Normal PP C/S Incision Prov: Normal PP Progress Prov: Normal PP Comments Phys Exam Prov: Incision intact, no drainage PP Impression Prov: Normal progression PP Plan Prov: Continue present management PP Progress Note Prov: POD 2 s/p primary section for breech presentation, doing well, breas t feeding Pt reports watery bowel movements Will hold colace for now Vital Signs Provider PP: Reviewed
[2018-09-22] MEDS: Prenatal Multivit/Folic Acid/Iron Tab PO SCH (09:16)
[2018-09-22] MEDS: Simethicone 80 mg Chewtab PO SCH ×4 (09:16→21:54)
[2018-09-23] MEDS: Oxycodone/Acetaminophen 5/325 mg Tab PO PRN ×2 (00:29→06:16)
[2018-09-23 09:07] VITALS: BP 100/66
[2018-09-23] MEDS: Simethicone 80 mg Chewtab PO SCH (10:44)
[2018-09-23] MEDS: Prenatal Multivit/Folic Acid/Iron Tab PO SCH (10:45)
[2018-09-23 19:10] VITALS: PULSE 83; RESP 20; TEMP 97.5; O2SAT 98
== END 2018-09-23 11:15 | disposition home or self-care (01) | DRG 785 ==
LOC: C.EROB 06:00 → C.4D 06:40 → C.4M 12:28
PROVIDERS: ADMIT Obstetrics & Gynecology; ATTEND Obstetrics & Gynecology
PROC: 10D00Z1 Extraction of Products of Conception, Low, Open Approach (ICD-10-PCS; principal; 2018-09-20)
PROC: 0UB70ZZ Excision of Bilateral Fallopian Tubes, Open Approach (ICD-10-PCS; 2018-09-20)
DX: O32.1XX0 Maternal care for breech presentation, not applicable or unspecified (principal); O99.824 Streptococcus B carrier state complicating childbirth; Z30.2 Encounter for sterilization; Z3A.39 39 weeks gestation of pregnancy; Z37.0 Single live birth